=== PATIENT | female | born 1945 | race Caucasian/White ===

== ENCOUNTER 2017-02-25 10:17 | Inpatient (IN) ==
[2017-02-25 10:49] LABS: MANUAL DIFF NEEDED? NO
[2017-02-25 10:51] LABS: BASO% 0.3 % (0.0-0.8); EOS# 0.12 X1000 (0.0-0.7); EOS% 1.6 % (0.0-10.0); HEMATOCRIT 35.4 % (37.0-47.0); HEMOGLOBIN 11.9 g/dL (12.0-16.0); IMM GRAN# 0.02 X1000 (0.0-0.04); IMM GRAN% 0.3 % (0.0-0.5); LYMPH# 0.96 X1000 (1.2-3.4); LYMPH% 12.7 % (20.5-51.1); MCH 28.9 PG (27-31); MCHC 33.6 g/dL (33-37); MCV 85.9 FL (81-99); MONO# 0.72 X1000 (0.11-0.59); MONO% 9.5 % (1.7-9.3); MPV 10.4 FL (7.4-10.4); NEUT% 75.6 % (42.2-75.2); PLT 248 X1000 (130-400); RBC 4.12 XMIL (4.2-5.4)
[2017-02-25 11:29] LABS: ALBUMIN 3.8 g/dL (3.5-5.0); CALCIUM 9.4 mg/dL (8.8-10.2); POTASSIUM 3.2 mmol/L (3.5-5.1); TOTAL BILIRUBIN 1.1 mg/dL (0.20-1.00); TOTAL PROTEIN 7.1 g/dL (6.3-8.3)
--- NOTE | 2017-02-25 11:35 | Diag Imaging Result Document ---
PROCEDURE NAME: FLAT/UPRIGHT ABD/1 VIEW CHEST - 02/25/2017 FLAT AND UPRIGHT ABDOMEN: FINDINGS: There are multiple phleboliths in the pelvis. The bowel gas pattern is unremarkable. There is no evidence of organomegaly or mass. There may be a stone or stones in the lower pole of the left kidney. This was the case on the CT of 03/12/2012. IMPRESSION: Left nephrolithiasis. Otherwise, no evidence of acute disease. PA CHEST: FINDINGS: There is a granuloma in the right upper lobe. This has not changed since 07/20/2012. IMPRESSION: No acute disease.
[2017-02-25 11:47] LABS: BILIRUBIN URINE NEGATIVE (NEGATIVE); BLOOD URINE NEGATIVE (NEGATIVE); CLARITY CLEAR (CLEAR); COLOR YELLOW; GLUCOSE URINE NEGATIVE (NEGATIVE); LEUKOCYTES URINE 1+ (NEGATIVE); NITRITE URINE NEGATIVE (NEGATIVE); PROTEIN URINE NEGATIVE (NEGATIVE); URINE CULTURE PL NEEDED? YES; URINE EPITHELIAL CELLS <10 /HPF (<10); URINE SOURCE CLEAN CATCH; URINE WBC <10 /HPF (<10); UROBILINOGEN URINE NORMAL
[2017-02-25] MEDS ORDERED: NS 1,000 ML IV ONE (11:53)
[2017-02-25] MEDS ORDERED: NS 1,000 ML ONE (11:54)
[2017-02-25] MEDS ORDERED: ZOFRAN IV ONE (12:45)
[2017-02-25] MEDS ORDERED: MORPHINE IV ONE (12:45)
[2017-02-25] MEDS ORDERED: ZOFRAN ONE (12:49)
[2017-02-25] MEDS ORDERED: MORPHINE ONE (12:50)
--- NOTE | 2017-02-25 12:56 | Diag Imaging Result Document ---
PROCEDURE NAME: CT ABD/PELVIS W/ IV CONT ONLY - 02/25/2017 CT ABDOMEN AND PELVIS WITH INTRAVENOUS CONTRAST: A CT dose reduction protocol was used. COMPARISON: 03/02/2012. FINDINGS: The gallbladder is severely dilated with severe wall thickening and inflammation. This is compatible with acute cholecystitis. There are a couple of stable cysts in the liver. There are a couple of stable nonobstructing left renal stones. No bowel obstruction or inflammation. Significant diverticulosis of the sigmoid colon. Uterus is absent. Urinary bladder and rectum are normal. The lung bases are clear and the heart size is normal. Bony structures are intact. IMPRESSION: Acute cholecystitis. Findings were immediately called to the patient's ER practitioner. [facility]
[2017-02-25] MEDS ORDERED: ZOSYN 3.375 GM/NS 3.375 GM/50 ML IVPB IV ONE (13:22)
--- NOTE | 2017-02-25 13:30 | PROVIDER DOCUMENTATION ---
This chart was entered by Damien Ruiz Scribe, acting as scribe for Cheri Arellano CRNP. HPI-Abdominal Pain/GI Problem - General Chief Complaint: N/V/D Stated Complaint: N/V/D Time Seen by Provider: 02/25/17 10:31 Source: patient Allergies/Adverse Reactions: Patient Allergies Allergy/AdvReac Type Severity Reaction Status Date / Time No Known Allergies Allergy Unverified 02/25/17 10:33 Home Medications: Home Medication List Medication Instructions Recorded Confirmed Last Taken Type Aspirin [Aspir 81] 81 mg PO DAILY 07/20/12 07/20/12 07/19/12 07:00 History 81MG Losartan/Hydrochlorothiazide 0.5 each PO DAILY 07/20/12 07/20/12 07/20/12 07:00 History [Losartan-Hctz 100-25 mg Tab] 50MG/12.5MG - History of Present Illness-ABD Nature of Presenting Problems: patient is a 71 y/o F that presents to the ER with one week of intermitted n/v/ d with some abdominal soreness but not pain. patient reports symptoms began with n/v and developed some diarrhea 24 hours ago. denies fever/chills, dysuria , chest pain, or shortness of breath. No recent bad food or sick exposure Abdominal Pain Onset Location: reports: epigastric Pain Radiation: reports: no radiation Quality of Pain: reports: aching, cramping Onset/Duration: reports: gradual, 1 week ago Timing: reports: still present, intermittent Activities at Onset: reports: none Modifying Factors: improves with: nothing Associated Symptoms: reports: diarrhea, nausea, vomiting. denies: back/neck pain, chest pain, constipation, cough, fever/chills, genitourinary problems, muscle aches, sinus congestion/drainage, shortness of breath, pain with inspiration, swelling/mass in abdomen Similar Symptoms Previously?: No Recently seen or treated by another doctor?: No Review of Systems - Adult - REVIEW OF SYSTEMS - ADULT Constitutional: denies: chills, fever Eyes: denies: decreased vision, blurred vision, double vision Ears, Nose, Mouth & Throat: denies: ear pain, sinus problem, throat pain, throat swelling Cardiovascular: denies: chest pain, palpitations, syncope Respiratory: reports: no symptoms reported Gastrointestinal: reports: diarrhea, nausea, vomiting. denies: hematemesis, constipation, rectal bleeding Genitourinary: denies: dysuria, frequency, hematuria, urgency Musculoskeletal: reports: no symptoms reported Integumentary: reports: no symptoms reported Neurological: reports: no symptoms reported Psychiatric: reports: no symptoms reported Endocrine: reports: no symptoms reported Hematologic/Lymphatic: reports: no symptoms reported Allergic/Immunologic: reports: no symptoms reported All Other Systems: Reviewed and Negative Past History - Adult - PAST MEDICAL HISTORY-ADULT Review of Records: reports: Old Records Reviewed, Nursing Assessment Review, Medications Reviewed Cardiovascular: reports: HTN Neurological: reports: other (essetinal tremor) - PRIOR SURGERIES/PROCEDURES Surgical/Procedure History: reports: appendectomy, hysterectomy - IMMUNIZATION STATUS Childhood Immunizations: See Nurse Assessment Flu Vaccine: See Nurse Assessment - FAMILY HISTORY Family History: reviewed, not pertinent - SOCIAL HISTORY Smoking: non-smoker Living Situation: family Physical Exam-General - PHYSICAL EXAM-ADULT Initial Vital Signs Reviewed: Yes - CONSTITUTIONAL General Appearance: alert, no apparent distress - EYES Eyes: PERRL/EOMI, pink conjunctivae - HEAD, EARS, NOSE, MOUTH & THROAT HENMT: normocephalic/atraumatic, moist mucous membranes, normal ENT inspection - NECK Neck: non-tender, full range of motion, normal inspection - RESPIRATORY Respiratory: lungs clear, normal breath sounds, no respiratory distress, no accessory muscle use - CARDIOVASCULAR Cardiovascular: regular rate, rhythm, no edema, no murmur - GASTROINTESTINAL (ABDOMEN) Abdominal Exam: normal bowel sounds, soft, no organomegaly, no pulsatile mass, tenderness (mild epigatric more soreness) - MUSCULOSKELETAL Extremity: normal range of motion, no calf tenderness, normal capillary refill - SKIN Integumentary: normal color, warm/dry - NEUROLOGIC Neurologic: other (essetinal left sided tremo). negative: aphasia, EOM palsy, facial droop - PSYCHIATRIC Psych/Mental Status: normal mood/affect, normal thought content, normal thought process, oriented x 3 Progress - PLAN OF CARE/RESULTS Progress/Plan/Lab Results: Vital Signs - 8 hr 02/25/17 10:29 Temperature 98.0 F Pulse Rate 75 Respiratory Rate 20 Blood Pressure 122/68 O2 Sat by Pulse Oximetry 99 Result Diagrams: 02/25/17 10:45 02/25/17 10:45 - CT/MRI 1 CT Study: Abdomen, Pelvis CT Results: Acute cholecystitis ([place]) - CONSULTS/PCP/HOSPITALIST Notification #1 *Consult/PCP/Hospitalist*: Dr. Piper Time Discussed: 13:18 Reason/Comments: Consult Consult Disposition: other (Admit to medicine and he will see. Do US and start Zosyn.) #2 Consult: Dr. Pearce Time Discussed: 13:28 Reason/Comments: Admission Consult Disposition: Admit Departure - Departure Time of Disposition Decision: 13:22 DIAGNOSIS: Acute cholecystitis Disposition: ADMITTED INPATIENT 09 Certified Medical Emergency: Emergent Condition: Stable Referrals and Follow-Ups: Serjio Perdomo MD [Primary Care Provider] - - Critical Care Note This patient required my direct personal management.: No Attestation - Physician/ ABDIFATAH Attestation Patient care was provided by Advanced Practice Provider:: Yes Advanced Practice Provider:: Cheri Arellano Advanced Practice Provider documentation review:: The Mid-level provider documentation, treatment plan and medical decision making was reviewed by the physician who agrees with all treatment and medical decision making by the MLP. This chart was documented by the indicated scribe, (Damien Ruiz, [employer]) and accurately reflects the services I performed and decisions made by me, Cheri Arellano CRNP, as attested by the provider's signature.
--- NOTE | 2017-02-25 15:25 | Diag Imaging Result Document ---
PROCEDURE NAME: US ABDOMEN-COMPLETE - 02/25/2017 ULTRASOUND ABDOMEN COMPLETE: COMPARISON: CT from earlier. FINDINGS: There are numerous shadowing gallstones in the gallbladder. The gallbladder is distended with severe wall thickening. There are cysts in the liver and right kidney. Otherwise, both kidneys are normal. The pancreas and spleen are normal. The common bile duct measures 3 mm. Aorta, IVC, and main portal vein are patent. IMPRESSION: Acute cholecystitis.
[2017-02-25] MEDS: PROTONIX IV SCH (17:15)
[2017-02-25] MEDS: SODIUM CHLORIDE 0.9% INJ SCH (17:15)
[2017-02-25] MEDS: NS + KCL 20 MEQ 1,000 ML IV SCH (17:18)
--- NOTE | 2017-02-25 17:34 | HISTORY AND PHYSICAL ---
CHIEF COMPLAINT: Nausea, vomiting, abdominal pain. HISTORY OF PRESENT ILLNESS: This is a very pleasant, 71-year-old female with history of hypertension alone, who has had about a week history of epigastric pain and some intermittent diarrhea and then protracted nausea. She has had episodes where she feels like she gets better after a day or 2 and then it just comes back, usually associated with eating. She has no history of gallstones or biliary colic previously. Pain is sharp, focused in her epigastrium, associated with nausea, vomiting. Does radiate to her lower quadrants. Associated also with some diarrhea which started today which was a light yellowish color. She denies any fevers. No recent large fatty meals or anything of that nature. Workup in the ER consistent with cholecystitis, as well as gallstone pancreatitis and she was admitted as such. PAST MEDICAL HISTORY: 1. Hypertension. 2. Osteoarthritis. 3. Benign essential tremor. FAMILY HISTORY: Son has had recent gallbladder disease and she has 1 sister who had gallbladder disease. SOCIAL HISTORY: No tobacco or ethanol. ALLERGIES: No known drug allergies. MEDICATIONS: She takes Hyzaar, losartan, hydrochlorothiazide 100/25 half a tablet a day and 81 of aspirin. REVIEW OF SYSTEMS: Times 10 systems, otherwise reviewed and otherwise negative. PHYSICAL EXAMINATION: VITAL SIGNS: Blood pressure 151/58, heart rate is 67, respiratory rate 20, temperature of 98 degrees. GENERAL: A well-developed female, in no acute distress. HEAD: Normocephalic, atraumatic. EYES: Pupils equal, round, reactive to light. I did not appreciate any scleral icterus. NECK: Supple. CARDIOVASCULAR EXAM: Regular rate and rhythm. No murmurs, gallops, or rubs. PULMONARY: Exam bilateral breath sounds. Clear to auscultation. GI: Soft. Tender to palpation in her right upper quadrant and epigastrium. Some pain in her lower quadrants. No guarding. No rebound. Bowel sounds are positive. EXTREMITIES: No clubbing or cyanosis. LYMPHATICS: No peripheral edema. NEUROLOGICAL: Nonfocal. LABORATORY DATA: Normal white count. Hemoglobin and hematocrit 11 and 35. Platelets of 248. Potassium of 3.2. T-bili of 1.1. AST 204, ALT 85, alkaline phosphatase 390. Lipase 245. CT scan was read. Impression was cholecystitis. There was no mention of pancreatitis. ASSESSMENT: A 71-year-old female presenting with nausea, vomiting, diarrhea, abdominal pain, most consistent findings was a gallstone pancreatitis. 1. Gallstone pancreatitis, cholecystitis. We will continue IV fluids, pain control, IV antibiotics. She has no white count, but she is clinically symptomatic. Right upper quadrant ultrasound is being ordered to evaluate for choledocholithiasis, which is a possibility since she has elevated liver enzymes, alkaline phosphatase, mild elevation in her bilirubin. We will continue hydration and pursue surgical consultation because she will likely need laparoscopic cholecystectomy and intraoperative cholangiogram to evaluate for obstructed stones. Continue pain medication, nausea medication and follow clinically. 2. Hypertension. We will monitor. Currently, she appears to be stable. 3. Hypokalemia. We will supplement and follow. cc: MD Serjio Pearson MD
[2017-02-25] MEDS: ZOSYN 3.375 GM/NS 3.375 GM/50 ML IVPB IV SCH (18:23)
--- NOTE | 2017-02-26 00:18 | CONSULTATION ---
DATE OF CONSULTATION: 02/25/2017 HISTORY OF PRESENT ILLNESS: This is a 71-year-old female who presents with about a week of right upper quadrant pain. She states she has had colicky intermittent episodes over the last several months, but this week it has become persistent. Unable to tolerate p.o., as this makes her pain worse, and it got to the point that she came into the emergency room today. CT scan was obtained that showed a dilated, distended gallbladder with stranding. She does note some dark urine, but no jaundice. Has had low-grade fevers over the course of a week, as high as 101, and some nausea, but no vomiting. Bowel movements have otherwise been normal, with the exception they have been somewhat loose lately LFTs were abnormal, with elevation in her lipase to 245. Her bilirubin is 1.1. Transaminases 204 and 85, alkaline phosphatase 391. White count was 7, hematocrit was 35. Urinalysis had 1+ white blood cells, but otherwise was negative. PAST MEDICAL HISTORY: Hypertension. PAST SURGICAL HISTORY: She had a hysterectomy and appendectomy and ovarian cystectomy. SOCIAL HISTORY: No tobacco, alcohol, or drugs. [place]. She has got a lot of family. FAMILY HISTORY: Her dad had leukemia, but otherwise negative for cancer. She has had colonoscopies in the past that reportedly were normal. REVIEW OF SYSTEMS: 10 point negative other than HPI PHYSICAL EXAMINATION: Vital Signs: Temperature is 98 degrees, pulse 67, blood pressure 151/58, oxygen saturation 100% on room air. General: She is alert, in no acute distress. HEENT: No scleral icterus. Cervical: There are no masses, no lymphadenopathy. Cardiovascular: Normal rate, regular rhythm. Pulmonary: No increased work of breathing. Abdomen: Soft, nondistended. There is some right upper quadrant tenderness to palpation, but no peritonitis. Integument: Otherwise warm, dry, without jaundice. Extremities: Lower extremity exam is warm, well-perfused, without edema. Neurologic: She is alert. I do not see any gross motor deficits, other than she does have a tremor throughout. Musculoskeletal: Good muscle mass throughout. . DIAGNOSTIC DATA: CT of the abdomen and pelvis with IV contrast shows a dilated , thickened gallbladder with surrounding stranding. Ultrasound shows stones, but no ductal dilation at 3 mm, and there are gallstones. Pancreas without mass. ASSESSMENT AND PLAN: A 71-year-old female with gallstone pancreatitis and cholecystitis. I had a long discussion with the patient. She is clinically stable, and does not appear to be septic. Given pancreatitis, I have recommended n.p.o. and bowel rest following her labs and exams, and IV antibiotics for the cholecystitis. We will plan a cholecystectomy with cholangiogram as her pancreatitis resolves. We will monitor LFTs. If they worsen, she may need ERCP first, but will make this determination as she progresses. Otherwise, we discussed risks, benefits, alternatives to surgery. She does consent to laparoscopic cholecystectomy with intraoperative cholangiogram. I have made her n.p.o., and she is on Zosyn per Dr. Tirado. Will follow her along, but most likely will take through the weekend before she is in a place that is good for cholecystectomy, the earliest tomorrow, most likely Wednesday. We also discussed the possibility of requiring an ERCP. She understands. cc: Everardo Piper MD MTDD
[2017-02-26] MEDS: ZOSYN 3.375 GM/NS 3.375 GM/50 ML IVPB IV SCH ×4 (01:01→22:40)
[2017-02-26] MEDS: NS + KCL 20 MEQ 1,000 ML IV SCH ×3 (04:12→22:54)
[2017-02-26 05:55] LABS: HEMATOCRIT 34.8 % (37.0-47.0); HEMOGLOBIN 11.6 g/dL (12.0-16.0); MCH 29.5 PG (27-31); MCHC 33.3 g/dL (33-37); MCV 88.5 FL (81-99); MPV 10.3 FL (7.4-10.4); RBC 3.93 XMIL (4.2-5.4)
[2017-02-26] MEDS: ZOFRAN IV PRN ×2 (05:56→23:09)
[2017-02-26 06:14] LABS: ALBUMIN 3.5 g/dL (3.5-5.0); POTASSIUM 4.3 mmol/L (3.5-5.1); TOTAL BILIRUBIN 0.81 mg/dL (0.20-1.00); TOTAL PROTEIN 6.8 g/dL (6.3-8.3)
--- NOTE | 2017-02-26 14:49 | PROGRESS NOTE ---
DATE: 02/26/2017 SUBJECTIVE: Still has some pain that sounds consistent with resolving pancreatitis, and some nausea. Otherwise, no vomiting. Hemodynamically, she has been stable. No fevers overnight. OBJECTIVE: Vital Signs: Temperature is 98.3 degrees, pulse 56, blood pressure 143/60, and oxygen saturation 99% on room air. General: She is alert, in no acute distress. HEENT: There is no scleral icterus. Cardiovascular: Normal rate, regular rhythm. Pulmonary: No increased work of breathing. Abdomen: Soft. There is some mild epigastric tenderness, but no peritonitis. She is nondistended. Integument: Warm and dry, without jaundice. Extremities: No lower extremity edema. LABORATORIES: I reviewed her laboratories. White count remains normal at 7, hematocrit is 34. Creatinine is up slightly at 1.2, but electrolytes look better. Bilirubin is down to 0.81. Transaminases, AST and ALT are 109 and 124. Alkaline phosphatase is down to 126. Her lipase has normalized now at 41. Albumin is 3.5. ASSESSMENT AND PLAN: This is a 71-year-old female with gallstone pancreatitis and evidence of cholecystitis. Clinically, she is improving, but I suspect her pancreatitis has not quite resolved yet, as she has not been really on bowel rest now for 24 hours, but her liver function tests are gradually improving and her white count remains normal, with a relatively benign abdominal examination. Risks, benefits, and alternatives have been discussed with the patient, including the high risk of common bile duct injury in the setting of pancreatitis and the likelihood that she may require ERCP if stone is noted on cholangiogram. I have her tentatively posted for laparoscopic cholecystectomy with cholangiogram on Wednesday. If anything changes in her condition over the weekend, myself or Dr. Rene can make more arrangements sooner, but I think allowing the pancreatitis to resolve will provide her an optimal benefit, and she is on antibiotics and is clinically responding as far as her cholecystitis. Will continue to monitor her. I do not see signs of cholangitis at this time. If her pain resolves over the weekend, we could give her clear liquids, but will plan to make her n.p.o. Wednesday night for surgery on Wednesday. cc: Everardo Piper MD
--- NOTE | 2017-02-26 15:28 | PROGRESS NOTE ---
DATE: 02/26/2017 SUBJECTIVE: Ms. Quinones is a 71-year-old female who is in no acute distress. She had some nausea this morning. Plans per Dr. Piper is for cholecystectomy on Wednesday. She has no other complaints. OBJECTIVE: Vital Signs: Temperature is 98.3 degrees, heart rate 56, respiratory rate 18, blood pressure 143/60, O2 saturation 99% on room. General: Ms. Quinones is a 71-year-old female. She is in no acute distress and is able to answer all questions appropriately. Cardiovascular: S1, S2. Regular rate and rhythm. No rubs, gallops, murmurs. Pulmonary: Clear to auscultation. Bilateral breath sounds. No accessory muscle use or work of breathing noted. GI: Soft, nontender, nondistended. Positive bowel sounds x4. Extremities: No edema. +2 dorsalis and radial pulses. LABORATORY DATA: White blood cells 7000, hemoglobin 11, hematocrit 34, platelet count 244,000. Sodium 145, potassium 4.3, BUN 11, creatinine is 1.2, glucose 89. Bilirubin 0.81. AST 109, ALT 124, alkaline phos 326. Amylase 67, lipase 41. IMAGING: No new imaging. ASSESSMENT AND PLAN: 1. Cholecystitis. IV fluid hydration. Pain control. On IV antiemetics along with IV antibiotics. She is planned for a cholecystectomy on Wednesday by Dr. Piper. 2. Gallstone pancreatitis low-grade. Amylase and lipase are back to normal. Continue IV fluid hydration. Antiemetics per Dr. Piper. She can have ice chips today, clear liquids tomorrow, full liquids Wednesday and NPO on Wednesday night. 3. Hypertension. Stable. 4. Hypokalemia. Resolved. 5. Transaminitis secondary to gallstone. 6. Anemia. Dictated by SHARRON Boland for Rico Jean-Baptiste MD cc: SHARRON Boland MD
[2017-02-26] MEDS: SODIUM CHLORIDE 0.9% INJ SCH (17:32)
[2017-02-26] MEDS: PROTONIX IV SCH (17:32)
[2017-02-27] MEDS: NS + KCL 20 MEQ 1,000 ML IV SCH ×2 (02:20→11:39)
[2017-02-27] MEDS: ZOSYN 3.375 GM/NS 3.375 GM/50 ML IVPB IV SCH ×5 (04:54→23:06)
[2017-02-27 06:08] LABS: MANUAL DIFF NEEDED? NO
[2017-02-27 06:11] LABS: EOS# 0.23 X1000 (0.0-0.7); EOS% 2.8 % (0.0-10.0); HEMATOCRIT 33.6 % (37.0-47.0); HEMOGLOBIN 10.9 g/dL (12.0-16.0); LYMPH# 1.42 X1000 (1.2-3.4); LYMPH% 17.3 % (20.5-51.1); MCH 29.1 PG (27-31); MCHC 32.4 g/dL (33-37); MCV 89.6 FL (81-99); MONO# 0.84 X1000 (0.11-0.59); MONO% 10.2 % (1.7-9.3); MPV 10.4 FL (7.4-10.4); NEUT% 68.7 % (42.2-75.2); PLT 253 X1000 (130-400); RBC 3.75 XMIL (4.2-5.4)
[2017-02-27 06:51] LABS: ALBUMIN 3.3 g/dL (3.5-5.0); CALCIUM 8.6 mg/dL (8.8-10.2); POTASSIUM 4.4 mmol/L (3.5-5.1); TOTAL BILIRUBIN 0.65 mg/dL (0.20-1.00); TOTAL PROTEIN 6.6 g/dL (6.3-8.3)
[2017-02-27] MEDS: ZOFRAN IV PRN (09:40)
[2017-02-27] MEDS ORDERED: D50W SYRINGE IV PRN (11:02)
--- NOTE | 2017-02-27 12:17 | PROGRESS NOTE ---
DATE: 02/27/2017 SUBJECTIVE: Ms. Quinones is a 71-year-old female. She is in no acute distress. She states that she does have a waves of nausea. Today she has been able to have some small amounts of clear fluids p.o. and has tolerated them well. Liver enzymes are lower today. She has no new complaints. OBJECTIVE: Vital Signs: Temperature is 98.8 degrees, heart rate 64, respiratory rate 18, blood pressure 141/54, O2 saturation 96% on room air. Cardiovascular: S1, S2. Regular rate and rhythm. No rubs, gallops, murmurs. Pulmonary: Clear to auscultation. Bilateral breath sounds. No accessory muscle use or work of breathing noted. Gastrointestinal: Abdomen soft, nontender, nondistended. Positive bowel sounds x4. Skin: Warm, dry, intact. LABORATORY DATA: White blood cells 8000. Hemoglobin 10, hematocrit 33, platelet count 253,000. Sodium 146, potassium 4.4, BUN 17, creatinine is 1.1, glucose was 50. Bilirubin 0.65, AST 42, ALT 74, alkaline phosphatase 243, albumin 3.3. IMAGING: None. ASSESSMENT AND PLAN: 1. Cholecystitis. Continue IV and fluid hydration. Pain control. Continue antiemetics and antibiotics. Plan for cholecystectomy on Wednesday by Dr. Piper. 2. Gallstone pancreatitis. Appears to be resolved with normal amylase and lipase. She will have clear liquids today, full liquids tomorrow and then p.o. twice a day. 3. Hypernatremia. Mild. We will change IV fluids to half saline. 4. Hypertension. Stable. 5. Hypokalemia. Resolved. 6. Transaminitis. Improving. 7. Anemia. Stable. Dictated by SHARRON Boland for Rico Jean-Baptiste MD cc: SHARRON Boland MD
[2017-02-27] MEDS: 1/2 NS 1,000 ML IV SCH ×2 (12:20→23:06)
[2017-02-27] MEDS: PROTONIX IV SCH (16:18)
[2017-02-27] MEDS: SODIUM CHLORIDE 0.9% INJ SCH (16:18)
--- NOTE | 2017-02-27 17:50 | PROGRESS NOTE ---
DATE: 02/27/2017 SUBJECTIVE: The patient kind of hurts all over but denies any significant abdominal pain. No nausea or vomiting. She is tolerating her diet. OBJECTIVE: She is afebrile. Vital signs are stable.General: She is alert and oriented x3. No acute distress. GI: Soft. Minimal tenderness more so on the right side. No rebound or guarding. LABORATORY: White cell count 8, hemoglobin 10.9. AST 42, ALT 74, alkaline phosphatase 243. Total bilirubin 0.6. ASSESSMENT AND PLAN: A 71-year-old female with gallstone pancreatitis. The pancreatitis is significantly improving. She should be good to go for laparoscopic cholecystectomy on Wednesday. cc: Gil Rene MD
[2017-02-28] MEDS: 1/2 NS 1,000 ML IV SCH ×4 (02:00→21:37)
[2017-02-28] MEDS: ZOSYN 3.375 GM/NS 3.375 GM/50 ML IVPB IV SCH ×4 (05:06→21:37)
[2017-02-28 05:53] LABS: MANUAL DIFF NEEDED? NO
[2017-02-28 05:59] LABS: BASO% 0.5 % (0.0-0.8); EOS# 0.32 X1000 (0.0-0.7); EOS% 4.3 % (0.0-10.0); HEMATOCRIT 32.9 % (37.0-47.0); HEMOGLOBIN 10.9 g/dL (12.0-16.0); IMM GRAN# 0.02 X1000 (0.0-0.04); IMM GRAN% 0.3 % (0.0-0.5); LYMPH# 1.73 X1000 (1.2-3.4); LYMPH% 23.3 % (20.5-51.1); MCH 29.2 PG (27-31); MCHC 33.1 g/dL (33-37); MCV 88.2 FL (81-99); MONO% 9.4 % (1.7-9.3); MPV 10.6 FL (7.4-10.4); NEUT% 62.2 % (42.2-75.2); PLT 289 X1000 (130-400); RBC 3.73 XMIL (4.2-5.4)
[2017-02-28 06:28] LABS: ALBUMIN 3.4 g/dL (3.5-5.0); CALCIUM 8.7 mg/dL (8.8-10.2); POTASSIUM 3.7 mmol/L (3.5-5.1); TOTAL BILIRUBIN 0.51 mg/dL (0.20-1.00); TOTAL PROTEIN 6.3 g/dL (6.3-8.3)
--- NOTE | 2017-02-28 10:16 | PROGRESS NOTE ---
DATE: 02/28/2017 SUBJECTIVE: The patient complains of some diarrhea and abdominal discomfort, no worsening overall. OBJECTIVE: Vital Signs: She is afebrile. Vital signs are stable. General: Alert and oriented x4. No acute distress. GI: Soft. Minimal tenderness in her upper abdomen. Laboratory: White blood cell count 7.4, hemoglobin 10.9. Her AST is 26, ALT 60, alkaline phosphatase 207, total bilirubin 0.5. ASSESSMENT AND PLAN: A 71-year-old female with gallstone pancreatitis. She is scheduled for a laparoscopic cholecystectomy tomorrow. cc: Gil Rene MD
[2017-02-28] MEDS ORDERED: IMODIUM PO ONE (11:12)
[2017-02-28] MEDS ORDERED: IMODIUM PO PRN (11:13)
--- NOTE | 2017-02-28 13:47 | PROGRESS NOTE ---
DATE: 02/28/2017 SUBJECTIVE: Ms. Quinones is a 71-year-old female. She is in no acute distress but states that she is having lots of diarrhea that is clear and watery. Some mild nausea when she is moving around but otherwise no other complaints. EXAM: Vital Signs: Temperature is 98.2 degrees, heart rate 51, respiratory rate 14, blood pressure 139/51, O2 saturation 100% on room air. General: Ms. Quinones is a 71-year-old female, she is in no acute distress, able to answer questions appropriately. Cardiovascular: S1, S2. Bradycardic rate and rhythm. No rubs, gallops, murmurs. Pulmonary: Clear to auscultate. Bilateral breath sounds. No accessory muscle use or work of breathing noted. GI: Soft, nontender, nondistended. Positive bowel sounds x4. Extremities: No edema noted. +2 dorsalis pedal and radial pulses. LABORATORY DATA: White blood cells 7000, hemoglobin 10, hematocrit 32, platelet count 289,000. Sodium 142, potassium 3.7, BUN 7, creatinine is 1.0, glucose 84, calcium 8.7, bilirubin 0.51, AST 26, ALT 60, alkaline phosphatase 207, albumin 3.4. ASSESSMENT AND PLAN: 1. Cholecystitis. Will receive a cholecystectomy on Wednesday by Dr. Piper. Continue with pain control, IV fluid hydration, antiemetics. 2. Gallstone pancreatitis resolving. Continue with IV fluid hydration. She will have full liquids today, NPO after midnight for surgery. 3. Diarrhea. She has been on antibiotics for the cholecystitis. Will do a stool for culture, dose of Imodium. 4. Hypernatremia is resolved after intravenous fluids were changed to 0.45% saline. 5. Hypertension stable. 6. Hypokalemia resolved. 7. Transaminitis continues to improve. 8. Anemia stable. Dictated by SHARRON Boland for Rico Jean-Baptiste MD cc: SHARRON Boland MD
[2017-02-28] MEDS: SODIUM CHLORIDE 0.9% INJ SCH (16:52)
[2017-02-28] MEDS: PROTONIX IV SCH (16:52)
[2017-03-01] MEDS: ZOSYN 3.375 GM/NS 3.375 GM/50 ML IVPB IV SCH ×4 (03:17→22:07)
[2017-03-01 05:37] LABS: MANUAL DIFF NEEDED? NO
[2017-03-01 05:41] LABS: BASO% 0.7 % (0.0-0.8); EOS% 4.4 % (0.0-10.0); HEMATOCRIT 32.9 % (37.0-47.0); IMM GRAN# 0.02 X1000 (0.0-0.04); IMM GRAN% 0.3 % (0.0-0.5); LYMPH# 1.69 X1000 (1.2-3.4); LYMPH% 24.8 % (20.5-51.1); MCH 29.3 PG (27-31); MCHC 33.4 g/dL (33-37); MCV 87.5 FL (81-99); MONO# 0.75 X1000 (0.11-0.59); MPV 10.4 FL (7.4-10.4); NEUT% 58.8 % (42.2-75.2); PLT 258 X1000 (130-400); RBC 3.76 XMIL (4.2-5.4)
[2017-03-01 06:00] LABS: AGAP 12; ALBUMIN 3.4 g/dL (3.5-5.0); ALKALINE PHOSPHATASE 174 U/L (32-104); BUN 3 mg/dL (8-22); CALCIUM 9.2 mg/dL (8.8-10.2); CHLORIDE 109 mmol/L (98-107); COSMO 287; GOT 23 U/L (10-30); GPT 46 U/L (10-36); POTASSIUM 3.3 mmol/L (3.5-5.1); SODIUM 146 mmol/L (136-145); TCO2 25 mmol/L (25-35); TOTAL BILIRUBIN 0.46 mg/dL (0.20-1.00); TOTAL PROTEIN 6.1 g/dL (6.3-8.3)
[2017-03-01] MEDS ORDERED: MARCAINE 0.25% PF/EPI 1:200,000 ONE (06:16)
[2017-03-01] MEDS ORDERED: SODIUM CHLORIDE 0.9% ONE (06:16)
[2017-03-01] MEDS ORDERED: LR 1,000 ML ONE (06:16)
[2017-03-01] MEDS ORDERED: XYLOCAINE-MPF 1% ONE (06:16)
--- NOTE | 2017-03-01 07:32 | PROGRESS NOTE ---
DATE: 03/01/2017 SUBJECTIVE: The pain is effectively resolved. She is still having some loose stools. She tolerated some liquids over the weekend without worsening of her pain. OBJECTIVE: Vital Signs: No fevers. No tachycardia. Blood pressure has been normal. General: She is alert and oriented. There is no scleral icterus. Cardiovascular: Normal rate, regular rhythm. Abdomen: Soft, nontender, nondistended. Integumentary: Warm and dry without jaundice. LABORATORY DATA: I reviewed her labs. White count remains normal. Hematocrit has been stable. Clostridium difficile cultures were negative. LFTs are downtrending. Alkaline phosphatase is still mildly elevated, but bilirubin is normal. Lipase was normal and that was a couple of days ago. Creatinine is normal. ASSESSMENT AND PLAN: This is a 71-year-old female with gallstone pancreatitis and cholecystitis. Her pancreatitis seems to have resolved now at least for 24 hours. She is doing overall well, and we plan for cholecystectomy today to prevent episodes in the future and to treat her likely chronic cholecystitis picture. We discussed risks, benefits, and alternatives, and this including bleeding, infection, bile leak, common bile duct injury, and the likelihood of having to leave the drain in, and the possibility of requiring ERCP. She understands all this. We will proceed to the operating room for laparoscopic cholecystectomy with intraoperative cholangiogram today, and then further disposition pending the findings at the time of surgery. cc: Everardo Piper MD
[2017-03-01] MEDS ORDERED: GLUCAGON ONE (07:57)
[2017-03-01] MEDS ORDERED: FENTANYL ONE (08:50)
[2017-03-01] MEDS ORDERED: DIPRIVAN 1% ONE (08:50)
[2017-03-01] MEDS: MORPHINE ONE ×6 (09:06→09:48)
[2017-03-01] MEDS ORDERED: PHENERGAN ONE (09:10)
--- NOTE | 2017-03-01 09:19 | Diag Imaging Result Document ---
PROCEDURE NAME: OPERATIVE CHOLANGIOGRAM - 03/01/2017 INTRAOPERATIVE CHOLANGIOGRAM: FINDINGS: There are 3 images submitted which show contrast in the cystic duct, common bile/hepatic duct, and central intrahepatic radicles. There is a small amount of contrast which appears to be located just distal to the ampulla of Vater and may be located in the duodenum. The possibility that this represents a tortuous distal most common bile duct with a couple of tiny retained stones in the distal most duct cannot be entirely excluded, however. The remainder of the opacified system shows no evidence of retained stone. There is some extravasated contrast noted at the right upper quadrant. IMPRESSION: No definite retained stones identified. A couple of tiny retained stones in the distal-most common bile duct cannot be entirely excluded. [facility]
[2017-03-01] MEDS ORDERED: NEOSTIGMINE ONE (09:29)
[2017-03-01] MEDS ORDERED: ANESTHESIA PB SET 88 IN 5742 ONE (09:29)
[2017-03-01] MEDS ORDERED: XYLOCAINE-MPF 2% ONE (09:29)
[2017-03-01] MEDS ORDERED: QUELICIN (DOSE) ONE (09:29)
[2017-03-01] MEDS ORDERED: NORCURON ONE (09:29)
[2017-03-01] MEDS ORDERED: EXTENSION SET 32 IN 4522 ONE (09:29)
[2017-03-01] MEDS ORDERED: ZOFRAN ONE (09:29)
[2017-03-01] MEDS ORDERED: STERILE WATER INJ. ONE (09:29)
[2017-03-01] MEDS ORDERED: ROBINUL ONE (09:29)
[2017-03-01] MEDS ORDERED: DECADRON ONE (09:30)
[2017-03-01] MEDS ORDERED: LR 4,000 ML ONE (09:31)
[2017-03-01] MEDS ORDERED: POTASSIUM CHLORIDE 60 MEQ in NS 500 ML IV ONE (10:00)
--- NOTE | 2017-03-01 10:37 | OPERATIVE NOTE ---
PROCEDURE DATE: 03/01/2017 PREOPERATIVE DIAGNOSIS: Gallstone pancreatitis with cholecystitis. POSTOPERATIVE DIAGNOSES: 1. Gallstone pancreatitis with cholecystitis. 2. Choledocholithiasis. OPERATIVE PROCEDURE: Laparoscopic cholecystectomy with intraoperative cholangiogram. SURGEON: Everardo Piper MD ESTIMATED BLOOD LOSS: 25 mL. SPECIMENS: Gallbladder. DRAIN: Garth drain left in the gallbladder fossa. INDICATIONS: This is a 71-year-old female who presented with right upper quadrant abdominal pain. She had normal LFTs, elevated lipase, CT, and ultrasound consistent with cholecystitis. She was kept on antibiotics and bowel rest over the weekend. Her pancreatitis resolved and her numbers slowly improved as far as her bilirubin, but her alkaline phosphatase remained elevated. Cholecystectomy was indicated and cholangiogram to rule out bile duct obstruction. OPERATIVE FINDINGS: 1. There was a chronically inflamed, distended gallbladder that was full of innumerable stones. 2. Interpretation of intraoperative cholangiogram: There was rapid flow of contrast through a moderate length cystic duct into a moderately dilated common bile duct. There was some slight trickle of contrast into the duodenum but this was very minimal. There appeared to be a distal common bile duct partial obstruction and a tortuous distal duct. The pancreatic duct was not visualized. The common hepatic and bilateral 2nd and 3rd degree biliary radicles were visualized. OPERATIVE NOTE: Risks, benefits, and alternatives were discussed with the patient. She consented to the procedure. She was seen in the preoperative area and surgery to be performed was confirmed. She was taken to the operating room and placed in supine position. General anesthesia was induced without complication. All bony prominences were padded. Preincisional antibiotics were administered. The abdomen was prepped with chlorhexidine and draped in the usual fashion. After a time-out, a periumbilical block was made. A curvilinear infraumbilical incision was made and carried down to the level of the fascia. We elevated the fascia with a Patel clamp. We made an incision in the midline and entered the abdomen in a controlled, open fashion. A 12 mm Ed trocar was placed and insufflated to 15 mmHg. We inspected the abdomen. There was no evidence of underlying injury. We then placed 3 trocars, 1 at the epigastrium, 1 in the midclavicular line off the costal margin, and 1 more laterally after infiltration of the peritoneum with a local anesthetic. We took down the omental adhesions to the gallbladder and retracted cephalad. We started laterally, progressing medially. We were able to identify the infundibulocystic junction. There was a very inflamed and adherent and friable lymph node overlying the triangle. We were able to establish the critical view of safety. We placed a clip on the gallbladder side and made a ductotomy. We milked some stones out of the cystic duct. There was a very large cystic duct but with a nearly obliterated lumen. We were able to perform cholangiogram. We triply clipped the duct after performing cholangiogram with the above findings. We did administer glucagon in attempt to get the distal obstruction relieved and this was unable to do so. We triply clipped and divided the cystic duct. We then dissected out the cystic artery, which was obscured prior to this, and doubly clipped and divided this. We removed the gallbladder from the gallbladder fossa. There was an opening made. This was densely adherent to the liver and there was an opening made posteriorly with some spillage of stones. We did crush these and removed the majority of these that were removable. We suctioned and copiously irrigated the abdomen with 3 L of fluid. The gallbladder was placed in the EndoCatch bag. We placed a Garth drain in the gallbladder fossa and secured it with 2-0 nylon. We inspected the cystic duct stump and it was not leaking. Hemostasis was noted. We removed trocars under direct visualization. We desufflated the abdomen and brought the gallbladder out through the umbilical incision. We closed the fascia with interrupted 0 Vicryl sutures. The skin was closed with 4-0 Monocryl. Dermabond was applied. She tolerated the procedure well and was transferred to the PACU. Counts were correct x2. I talked to the family. We will consult GI medicine for ERCP. cc: Everardo Piper MD [facility]
--- NOTE | 2017-03-01 10:58 | PROGRESS NOTE ---
DATE: 03/01/2017 SUBJECTIVE: The patient reports feeling fine. Still having diarrhea, although less in comparing with yesterday. OBJECTIVE: Vital Signs: Temperature 98.6, heart rate 66, respiratory rate 20, blood pressure 133/55. O2 saturation 98% on room air. General: This is a 71-year-old female lying in bed, in no acute distress. HEENT: Head is normocephalic, atraumatic. Anicteric sclerae and pale conjunctivae. Mucous membranes moist. Neck: Supple. No JVD noted. No carotid bruits. No lymphadenopathy. No thyromegaly. Cardiovascular: S1, S2 heard. No murmurs, gallops, or rubs. Regular rate and rhythm. Respiratory: Clear bilaterally to auscultation. No work of breathing or using accessory muscles. Abdomen: Soft, a little bit distended, but nontender to palpation. Bowel sounds present. No organomegaly. Extremities: No clubbing, cyanosis, or edema. Peripheral pulses present in both legs. Neurological: Patient alert and oriented x3. Able to move 4 extremities. LABORATORY DATA: White cell count 6.82, hemoglobin 11.0 hematocrit 32.9, platelets 258. Sodium 146, potassium 3.3, chloride 109, bicarbonate 25, BUN 3 creatinine 0.9. ASSESSMENT AND PLAN: 1. Acute cholecystitis. Today, the patient is going to have a laparoscopic cholecystectomy as per Dr. Carlos Piper. We appreciate the help. 2. Gallstone pancreatitis. That condition was resolved with definitely less abdominal pain. 3. Diarrhea. I think that was secondary to antibiotics. We have checked Clostridium difficile on the stools and that returned negative. 4. Hypertension, stable. 5. Hypokalemia, resolved. 6. Transaminitis, continues to improve. 7. Physical deconditioning. We are going to place a consult for physical therapy to see if this patient is able to go home versus rehab facility. cc: Rico Jean-Baptiste MD
[2017-03-01] MEDS: 1/2 NS 1,000 ML IV SCH ×2 (11:19→17:13)
--- NOTE | 2017-03-01 16:17 | CONSULTATION ---
DATE OF CONSULTATION: 03/01/2017 ATTENDING PHYSICIAN: Dr. Carlos Piper REASON FOR CONSULTATION: Common bowel obstruction requiring ERCP. HISTORY OF PRESENT ILLNESS: Ms. Quinones is a 71-year-old female who was admitted on 02/25/2017 with gallstone pancreatitis and acute cholecystitis that was treated conservatively. Today she went for laparoscopic cholecystectomy by Dr. Carlos Piper. Intraoperative cholangiogram showed minimal drainage into the common bile duct and the possibility of choledocholithiasis. Gastroenterology was consulted for the possibility of ERCP. The patient has just come back from the OR so I spoke to the patient and family at bedside. Patient is complaining of abdominal pain postoperatively, which is being managed with the primary team. PAST MEDICAL HISTORY: 1. Hypertension. 2. Osteoarthritis. 3. Gallstones and gallstone pancreatitis. 4. Benign essential tremor. PAST SURGICAL HISTORY: Cholecystectomy and intraoperative cholangiogram today on 03/01/2017. FAMILY HISTORY: Gallbladder disease. SOCIAL HISTORY: Very supportive family at the bedside. I spoke to the daughter. No history of alcohol, tobacco or illicit drugs. ALLERGIES: No known drug allergies. HOME MEDICATIONS: Hyzaar, losartan, hydrochlorothiazide and 81 mg aspirin. REVIEW OF SYSTEMS: The patient is just returning from the OR recovering from anesthesia and complaining of abdominal pain. The patient denies any vomiting blood and passing blood in the stools. MEDICATIONS IN THE HOSPITAL: Include IV fluids 100 mL/hour, Imodium, morphine, Zofran, Protonix, Zosyn and she is currently NPO. OBJECTIVE: Vital Signs: Temperature of 98.4 degrees, pulse rate 66, respiratory rate 18, blood pressure 150/65, saturating 94% on 2 L. General Appearance: Body weight of 130 pounds. BMI 22.3 kg. General Appearance: Moderately nourished, lying in bed, in distress with abdominal pain postoperative. HEENT: Pale conjunctiva. No icterus. Neck: Supple. Chest: Decreased breath sounds. Cardiovascular: Tachycardia. Abdomen: Discomfort probably from recent surgery. Drain noted in the right upper quadrant and surgical dressing noted in the right upper quadrant. Bowel sounds are hypoactive. Extremities: No cyanosis, clubbing. Neurologic: She is awake and answers simple questions but in pain from recent surgery. LABORATORY DATA: Hemoglobin and hematocrit 11 and 32.9, white count 6.8, platelet count of 258,000. MCV of 87.5, sodium 140, potassium 3.3, chloride 109, bicarbonate 25, anion gap 12, BUN of 3 creatinine 0.9, glucose of 89, calcium 9.2, total bilirubin is 0.46, AST 23, ALT 46, alkaline phosphatase 174, total protein 6.1, albumin of 3.4, lipase of 245 on admission gone down to 41, amylase of 109 on admission and went to 67, liver enzymes were up on admission trending down after surgery. Operative cholangiogram done today showed no definite retained stones. A couple of tiny retained stones in the distal most common bile duct cannot be entirely excluded. Very small contrast noted in the duodenum. IMPRESSION/PLAN: 1. Gallstone pancreatitis now resolved. 2. Acute cholecystitis and gallstone status post laparoscopic cholecystectomy today. 3. Questionable common bile duct stricture versus choledocholithiasis per the intraoperative cholangiogram. RECOMMENDATIONS: We will keep the patient NPO past midnight. We will schedule patient for ERCP tomorrow with Dr. Fields. The risks, benefits, indications and alternatives of the procedure were discussed with the patient and family at bedside. We will keep the patient on PPIs for GI prophylaxis. The patient will continue on IV antibiotics IV fluids, IV antiemetics, IV pain controlled by the primary team. The above plan was discussed with the patient and family. All questions were answered. cc: MD Everardo Wren MD Cesar Garcia-Rodriguez, MD Kirk L. Jackson, MD
[2017-03-01] MEDS: SODIUM CHLORIDE 0.9% INJ SCH (17:03)
[2017-03-01] MEDS: PROTONIX IV SCH (17:04)
[2017-03-01] MEDS: MORPHINE IV PRN ×2 (17:13→20:32)
[2017-03-02] MEDS: ZOSYN 3.375 GM/NS 3.375 GM/50 ML IVPB IV SCH ×4 (05:09→22:22)
[2017-03-02 05:32] LABS: MANUAL DIFF NEEDED? NO
[2017-03-02 05:37] LABS: BASO% 0.2 % (0.0-0.8); EOS# 0.02 X1000 (0.0-0.7); EOS% 0.2 % (0.0-10.0); HEMATOCRIT 33.6 % (37.0-47.0); IMM GRAN# 0.03 X1000 (0.0-0.04); IMM GRAN% 0.3 % (0.0-0.5); LYMPH% 15.1 % (20.5-51.1); MCH 29.2 PG (27-31); MCHC 32.7 g/dL (33-37); MCV 89.1 FL (81-99); MONO# 0.82 X1000 (0.11-0.59); MONO% 8.9 % (1.7-9.3); MPV 10.3 FL (7.4-10.4); NEUT% 75.3 % (42.2-75.2); PLT 247 X1000 (130-400); RBC 3.77 XMIL (4.2-5.4)
[2017-03-02 05:56] LABS: AGAP 12; ALBUMIN 3.2 g/dL (3.5-5.0); ALKALINE PHOSPHATASE 197 U/L (32-104); BUN 4 mg/dL (8-22); CALCIUM 8.6 mg/dL (8.8-10.2); CHLORIDE 108 mmol/L (98-107); COSMO 287; GOT 92 U/L (10-30); GPT 114 U/L (10-36); POTASSIUM 3.9 mmol/L (3.5-5.1); SODIUM 146 mmol/L (136-145); TCO2 26 mmol/L (25-35); TOTAL BILIRUBIN 0.45 mg/dL (0.20-1.00); TOTAL PROTEIN 6.1 g/dL (6.3-8.3)
[2017-03-02] MEDS: 1/2 NS 1,000 ML IV SCH ×3 (05:59→22:20)
--- NOTE | 2017-03-02 10:04 | PROGRESS NOTE ---
DATE: 03/02/2017 SUBJECTIVE: A little sore at her incision, but otherwise doing okay. No nausea. She is tolerating some liquids last time, but she is n.p.o. for ERCP today. OBJECTIVE: Vital Signs: Temperature is 98.6 degrees, pulse 64, blood pressure 166/84, oxygen saturation 96% on room air. General: She is alert and oriented. Head and neck: There is no scleral icterus or jaundice. Abdomen: Soft, appropriately tender. Skin: Incision is clean, dry, intact. ELONIA serosanguineous. LABS: Reviewed. White count is 9, hematocrit 33. Her bilirubin remains normal at 0.45. AST and ALT are slightly up at 92 and 114, and alkaline phosphatase is up at 197. ASSESSMENT/PLAN: [age] old female with gallstone pancreatitis. Laparoscopic cholecystectomy done yesterday. Cholangiogram showed minimal flow in the duodenum with a tortuous and likely distal common bile duct obstruction related to an intraluminal stone. Consult to gastroenterology and medicine with plan for endoscopic retrograde cholangiopancreatography today with Dr. Fields. We will follow these results and plan for maybe home later today versus tomorrow. Otherwise, we will keep her drain in until after endoscopic retrograde cholangiopancreatography. cc: Everardo Piper MD
[2017-03-02] MEDS: PERIDEX MT SCH ×2 (10:47→22:22)
--- NOTE | 2017-03-02 11:14 | PROGRESS NOTE ---
DATE: 03/02/2017 SUBJECTIVE: This patient states that she is feeling better, but she is still having abdominal discomfort. Laparoscopic cholecystectomy was performed yesterday, but this patient has probably an obstruction at the level of the distal common bile duct. Gastroenterology Department was consulted and probably today this patient will have an ERCP. OBJECTIVE: Vital Signs: Temperature 98.6 degrees, pulse 64, respiratory rate 18, blood pressure 166/88, oxygen saturation 96 on room air. HEENT: Head normocephalic. No trauma. PERRLA. Neck: Supple. No JVD. No masses. Central trachea. Chest: Clear to auscultation. No wheezing. No rales. Cardiovascular: RRR. No murmurs. Abdomen: Soft. Tender to palpation at the level of the right upper and right flank area. There is a drain that is coming out from the right abdominal area with serosanguineous discharge. Extremities: No edema. No clubbing. No cyanosis. Neurological examination: The patient is alert and oriented x3. No focal neurological deficits. LABORATORY: WBC 9.2, hemoglobin 11, hematocrit 33.6, platelets 247. Sodium 146, potassium 3.9, chloride 108, bicarbonate 26, BUN 4, creatinine 0.9, glucose 96, calcium 8.6. AST 92, ALT 114, alkaline phosphatase 197. ASSESSMENT AND PLAN: 1. Acute cholecystitis status post laparoscopic cholecystectomy, probably there is an obstruction at the level of the distal common bile duct. This patient will have hopefully an endoscopic retrograde cholangiopancreatography done today. 2. Diarrhea. Clostridium difficile was ruled out. This patient is not complaining of too much diarrhea today. Will monitor. 3. Hypertension. The blood pressure is a little bit high. Will monitor this today, probably will adjust her medications. 4. Mild hypernatremia. I will monitor. 5. Transaminitis likely related to the bowel obstruction. This patient will have an endoscopic retrograde cholangiopancreatography done today. We will continue to monitor. 6. Physical deconditioning. Physical therapy is on board. This patient lives by herself and she has no help at home. Probably this patient will benefit from the rehabilitation center. This patient is also weak. cc: Ameya Sanchez MD
[2017-03-02] MEDS ORDERED: GLUCAGON ONE (13:26)
[2017-03-02] MEDS ORDERED: DIPRIVAN 1% ONE (14:34)
[2017-03-02] MEDS ORDERED: ANESTHESIA PB SET 88 IN 5742 ONE (14:43)
[2017-03-02] MEDS ORDERED: EXTENSION SET 32 IN 4522 ONE (14:43)
[2017-03-02] MEDS ORDERED: LR 1,000 ML ONE (14:43)
[2017-03-02] MEDS: MORPHINE IV PRN (14:54)
[2017-03-02] MEDS: ZOFRAN IV PRN (15:03)
[2017-03-02] MEDS ORDERED: SODIUM CHLORIDE 0.9% INJ PRN (15:38)
[2017-03-02] MEDS ORDERED: PHENERGAN IV PRN (15:38)
--- NOTE | 2017-03-02 15:47 | Diag Imaging Result Document ---
PROCEDURE NAME: ERCP-BILIARY AND PANCREATIC - 03/02/2017 ERCP: FINDINGS: First film shows contrast in the common bile duct. There is a wire within the common bile duct. The last film shows placement of a biliary stent. IMPRESSION: Biliary stent placed with possible stone removal.
[2017-03-02] MEDS: SODIUM CHLORIDE 0.9% INJ SCH (16:09)
[2017-03-02] MEDS: PROTONIX IV SCH (16:09)
[2017-03-02] MEDS: DEMEROL IV PRN (22:41)
[2017-03-03] MEDS: ZOSYN 3.375 GM/NS 3.375 GM/50 ML IVPB IV SCH ×4 (03:28→21:43)
[2017-03-03] MEDS: DEMEROL IV PRN (03:35)
[2017-03-03] MEDS: 1/2 NS 1,000 ML IV SCH ×2 (05:07→16:09)
[2017-03-03 06:20] LABS: MANUAL DIFF NEEDED? NO
[2017-03-03 06:29] LABS: BASO% 0.3 % (0.0-0.8); EOS% 3.4 % (0.0-10.0); HEMATOCRIT 30.3 % (37.0-47.0); IMM GRAN# 0.02 X1000 (0.0-0.04); IMM GRAN% 0.2 % (0.0-0.5); LYMPH# 1.49 X1000 (1.2-3.4); LYMPH% 16.9 % (20.5-51.1); MCH 29.2 PG (27-31); MCV 88.3 FL (81-99); MONO# 0.81 X1000 (0.11-0.59); MONO% 9.2 % (1.7-9.3); MPV 10.4 FL (7.4-10.4); PLT 221 X1000 (130-400); RBC 3.43 XMIL (4.2-5.4)
[2017-03-03 06:57] LABS: AGAP 12; ALBUMIN 3.1 g/dL (3.5-5.0); ALKALINE PHOSPHATASE 148 U/L (32-104); BUN 4 mg/dL (8-22); CHLORIDE 102 mmol/L (98-107); COSMO 276; GOT 35 U/L (10-30); GPT 69 U/L (10-36); POTASSIUM 3.1 mmol/L (3.5-5.1); SODIUM 140 mmol/L (136-145); TCO2 26 mmol/L (25-35); TOTAL BILIRUBIN 0.39 mg/dL (0.20-1.00); TOTAL PROTEIN 5.5 g/dL (6.3-8.3)
[2017-03-03] MEDS ORDERED: KLOR-CON PO ONE (08:04)
[2017-03-03] MEDS: PERIDEX MT SCH ×2 (09:50→21:42)
[2017-03-03] MEDS: HYZAAR 50/12.5 MG PO SCH (09:50)
--- NOTE | 2017-03-03 13:11 | PROGRESS NOTE ---
DATE: 03/03/2017 SUBJECTIVE: Some increasing epigastric pain after ERCP last night. No nausea or vomiting. OBJECTIVE: Vital Signs: Temperature 97.8 degrees, pulse 71, blood pressure 163/62. Oxygen saturation 96% on room air. General: She is alert. There is no scleral icterus. Abdomen: Soft. Some epigastric tenderness that has increased from yesterday. Incisions are all clean, dry, intact. ELOINA serosanguineous. LABORATORY DATA: White count is stable at 8, hematocrit 30, creatinine 0.9, bilirubin 0.39, AST and ALT are down to 35 and 69. Alkaline phosphatase down to 148. Her lipase is persistently elevated at 212. It was down to 41 previously. ASSESSMENT/PLAN: This is a 71-year-old female who was admitted with gallstone pancreatitis, status post laparoscopic cholecystectomy with cholangiogram that showed a bile duct obstruction, now status post ERCP with sphincterotomy, stone extraction and stent replacement. She appears have a little bit of postprocedural worsening of the pancreatitis. We will monitor today with bowel rest. Plan to advance her diet and maybe home tomorrow. I will remove her drain before she goes. She is on antibiotics for ascending cholangitis prophylaxis and will continue this. Otherwise out of bed and continue to monitor her closely for any deterioration in her clinical condition. cc: Everardo Piper MD
--- NOTE | 2017-03-03 15:00 | PROGRESS NOTE ---
DATE: 03/03/2017 SUBJECTIVE: This patient today is complaining of more periumbilical pain. She denies nausea, vomiting, or diarrhea at this moment. She is tolerating a little bit of fluids. She is status post ERCP. OBJECTIVE: Vital Signs: Temperature 97.8 degrees, pulse 71, respiratory rate 16, blood pressure 163/62, oxygen saturation 96% on room air. HEENT: Head normocephalic. No trauma. PERRLA. Neck: Supple. No JVD. No masses. Central trachea. Cardiovascular: RRR. No murmurs. Chest: Clear to auscultation. No wheezing. No rales. Abdomen: Soft, tender to palpation at the level of the periumbilical area. There is a drain coming out of the abdomen with serosanguineous material. Positive bowel sounds. Extremities: No edema. No clubbing. No cyanosis. Neurological: The patient is alert and oriented x3. No focal neurological deficits. LABORATORY: WBC 8.8, hemoglobin 10, hematocrit 30.3, platelets 221,000. Sodium 140, potassium 3.1, chloride 102, bicarbonate 26, BUN 4, creatinine 0.9, calcium 8, AST 35, ALT 69, alkaline phosphatase 148, lipase 212. ASSESSMENT AND PLAN: 1. Acute cholecystitis status cholecystectomy. Also. This patient had an ERCP done because her cholangiogram showed a bile duct obstruction. During the ERCP, they did a sphincterectomy, stone extraction, and stent placement. She is tolerating a little bit of fluids. We will continue to monitor. 2. Diarrhea. Clostridium difficile has been ruled out. She is not complaining of diarrhea today. 3. Hypertension. Blood pressure is a little bit high. I restarted her home medications today. 4. Transaminitis, likely related to biliary obstruction. She is status post ERCP and stone removal plus stent placement. 5. Physical deconditioning. Physical Therapy is on board. Continue with the same management. 6. Essential tremor. This patient is having a mild tremor. This is chronic. We will continue to monitor. 7. Hypokalemia I will replace the potassium today. This patient is doing better. Hopefully, in 1 or 2 days I am going to be able to discharge this patient home. She does not want to go to a rehabilitation center. She wants to go home with home health and physical therapy. cc: Ameya Sanchez MD [facility]TD[facility]
--- NOTE | 2017-03-03 15:28 | PROGRESS NOTE ---
DATE: 03/03/2017 SUBJECTIVE: Patient is currently resting in bed. She complains of nausea and passing flatus. She has not had a bowel movement today. She was able to eat 50% of her meal this morning. She denies any fevers, rigors, chills. OBJECTIVE: Vital signs: Temperature 97, pulse of 71, respiratory rate 16, blood pressure 162/62, saturating 98% on room air. General Appearance: She is well-nourished, lying in bed, in no acute distress. HEENT: Mild pallor. No icterus. Neck: Supple. Abdomen: Right upper quadrant drain was noted draining serosanguineous fluid. Bowel sounds are present. No guarding. Mild discomfort around the drain site and surgery site. Extremities: No cyanosis or clubbing. Neurologic: She is alert, awake, oriented. LABS: Hemoglobin and hematocrit are 10 and 30.3, white count of 8.8, platelet count of 221,000. MCV of 88.3. Sodium 140, potassium 3.1, chloride 102, bicarbonate 26, anion gap 12, BUN of 4, creatinine 0.9, glucose of 99, calcium is 8, total bilirubin is 0.39, AST 35, ALT is 69, alkaline phosphatase 140, total protein 5.5, albumin of 8.1, lipase of 2.12. IMPRESSION/PLAN: 1. Gallstone pancreatitis status post laparoscopic cholecystectomy with intraoperative cholangiogram showing a torturous common bile duct, ? stricture in bile duct , possible obstruction versus stricture. Now she is status post ERCP with sphincterotomy, stone extraction and stent placement by Dr. Fields on 03/02/2017. She is passing flatus but has not had a bowel movement. We will discuss it with the Nursing Staff and Surgery Team if there is any need for any Dulcolax. 2. GI prophylaxis with protein pump inhibitor. 3. Patient will follow up with us in clinic 4 weeks after discharge to schedule for ERCP stent removal with Dr. Fields. 4. Gallstone pancreatitis. Continue IV fluids for now and avoid greasy fatty foods for 6 weeks. 5. Anemia. She will need outpatient workup. She may need EGD and colonoscopy as an outpatient. The patient was told to call us to schedule for outpatient EGD and colonoscopy if the anemia persists. 6. The above plan of care was discussed with the patient and all questions were answered. cc: MD Ameya Wren MD Kirk L. Jackson, MD R. Tyler Harney, MD MTDD
[2017-03-03] MEDS: SODIUM CHLORIDE 0.9% INJ SCH (16:09)
[2017-03-03] MEDS: PROTONIX IV SCH (16:09)
[2017-03-04] MEDS: ZOSYN 3.375 GM/NS 3.375 GM/50 ML IVPB IV SCH (03:07)
[2017-03-04] MEDS: 1/2 NS 1,000 ML IV SCH ×2 (04:40→16:30)
[2017-03-04 05:47] LABS: MANUAL DIFF NEEDED? NO
[2017-03-04 05:57] LABS: BASO% 0.3 % (0.0-0.8); EOS% 5.4 % (0.0-10.0); HEMATOCRIT 31.8 % (37.0-47.0); HEMOGLOBIN 10.5 g/dL (12.0-16.0); IMM GRAN# 0.02 X1000 (0.0-0.04); IMM GRAN% 0.3 % (0.0-0.5); LYMPH# 1.24 X1000 (1.2-3.4); LYMPH% 16.7 % (20.5-51.1); MCH 28.9 PG (27-31); MCV 87.6 FL (81-99); MONO% 8.1 % (1.7-9.3); MPV 10.3 FL (7.4-10.4); NEUT% 69.2 % (42.2-75.2); PLT 226 X1000 (130-400); RBC 3.63 XMIL (4.2-5.4)
[2017-03-04 06:44] LABS: AGAP 11; BUN 4 mg/dL (8-22); CALCIUM 8.6 mg/dL (8.8-10.2); CHLORIDE 104 mmol/L (98-107); COSMO 280; POTASSIUM 3.6 mmol/L (3.5-5.1); SODIUM 142 mmol/L (136-145); TCO2 27 mmol/L (25-35)
[2017-03-04 07:54] LABS: ALBUMIN 3.1 g/dL (3.5-5.0); ALKALINE PHOSPHATASE 150 U/L (32-104); DIRECT BILIRUBIN < 0.20 mg/dL (0.00-0.20); GOT 23 U/L (10-30); GPT 58 U/L (10-36); LIPASE 92 U/L (13-60); TOTAL BILIRUBIN 0.63 mg/dL (0.20-1.00); TOTAL PROTEIN 5.8 g/dL (6.3-8.3)
[2017-03-04] MEDS ORDERED: LOVENOX SUBQ SCH (08:30)
--- NOTE | 2017-03-04 08:39 | PROGRESS NOTE ---
DATE: 03/04/2017 SUBJECTIVE: She feels okay. Not much of an appetite but her pain is improved, mainly just sore in her incisions. OBJECTIVE: Vital Signs: Temperature is 98.8 degrees, pulse 61, blood pressure is 163/60, oxygen saturation 97% on room air. General: She is alert. HEENT: There is no scleral icterus. There is no jaundice. Cardiovascular: Normal rate, regular rhythm. Abdomen: Soft, nontender, nondistended. Incision is clean, dry, intact. ELOINA serosanguineous. Labs: White count is normal at 7, hematocrit is stable at 31. Bilirubin is normal at 0.63. Transaminases and alkaline phosphatase are downtrending. Lipase is down to 92. ASSESSMENT/PLAN: A 71-year-old female with gallstone pancreatitis and choledocholithiasis noted on cholangiogram. She has had an endoscopic retrograde cholangiopancreatography with stone extraction and stent placement. Overall, doing well. We will give her a soft diet today and would be fine with her going home later today if she tolerates this. She can come back to see me. I will remove her drain on Wednesday in my office. cc: Everardo Piper MD
[2017-03-04] MEDS ORDERED: DULCOLAX PR ONE (09:46)
[2017-03-04] MEDS: HYZAAR 50/12.5 MG PO SCH (09:56)
[2017-03-04] MEDS: PERIDEX MT SCH (09:56)
[2017-03-04] MEDS ORDERED: MIRALAX PO SCH (10:00)
--- NOTE | 2017-03-04 11:12 | PROGRESS NOTE ---
DATE: 03/04/2017 SUBJECTIVE: The patient is resting in bed. She complains of mild constipation. She is passing some flatus. She was able to eat 50% of some meal this morning. Her last bowel movement was 2 days ago. She denies any fevers, rigors, chills, nausea, or vomiting. OBJECTIVE: Vital signs: Temperature 98.9 degrees, pulse rate of 78, respiratory rate blood pressure 136/60, saturating 97% on room air. General appearance: Thinly built, lying in bed in no acute distress. HEENT: Mild pallor. No icterus. Neck: Supple. Abdomen: Right upper quadrant drain noted. Mildly sore around the right upper quadrant area. Bowel sounds are present, but hypoactive. No rebound. No guarding. Extremities: No cyanosis, clubbing. Neurologic: She is alert, awake, oriented. LABORATORY DATA: Her hemoglobin and hematocrit are 10.5 and 31.8, white count 7.4, platelet count of 226,000. Sodium 142, potassium 3.6, chloride 104, bicarb 27, anion gap 11, BUN of 4, creatinine of 1, glucose of 98, calcium 8.6. Total bilirubin is 0.63, AST 23, ALT 58, alkaline phosphatase 150, total protein 5.8, albumin of 3.1. Lipase of 92. IMPRESSION AND PLAN: 1. Constipation. She will be started on 1 dose of MiraLAX and Dulcolax today. At home, if she stays constipated, she will continue on MiraLAX once daily. 2. Gallstone pancreatitis, status post laparoscopic cholecystectomy with intraoperative cholangiogram showing a torturous common bile duct, stricture in the common duct. She is status post endoscopic retrograde cholangiopancreatography with sphincterotomy and stone extraction and stent placement by Dr. Fields on 03/02/2017. 3. The patient will follow with Dr. Fields in 4 weeks, and scheduled for endoscopic retrograde cholangiopancreatography with stent removal in 4 to 6 weeks. The patient was informed about that. 4. Gastrointestinal prophylaxis with proton pump inhibitors. 5. Anemia. Continue to watch. May benefit from multivitamin containing iron once daily at home. 6. The patient may need esophagogastroduodenoscopy and colonoscopy as outpatient for workup if anemia persists. Above plan was discussed with the patient and all questions were answered. cc: MD Everardo Wren MD Omar J. Sosa-Chirinos, MD Dr. Jackson MTDD
--- NOTE | 2017-03-04 15:37 | PROGRESS NOTE ---
DATE: 03/04/2017 SUBJECTIVE: This patient states that she is feeling better. We advanced the diet today. She is complaining of periumbilical pain, but compared with yesterday it is better. I will keep this patient 1 more night and tomorrow morning, if everything is okay, I will send her home. OBJECTIVE: Vital Signs: Temperature 98.9 degrees, pulse 70, respiratory rate 20, blood pressure 136/60, oxygen saturation 96% on room air. HEENT: Head normocephalic. No trauma. PERRLA. Neck: Supple. No JVD. No masses. Central trachea. Chest: Clear to auscultation. No wheezing. No rales. Abdomen: Soft. Mild tenderness to palpation at the level of the periumbilical area. Positive bowel sounds. Extremities: No edema. No clubbing. No cyanosis. Neurological: The patient has tremors, generalized. Patient is alert and oriented x3. No focal deficits. LABORATORY: WBC 7.4, hemoglobin 10.5, hematocrit 31.8, platelets 226,000. Sodium 142, potassium 3.6, chloride 104, bicarbonate 27, BUN 4, creatinine 0.8, glucose 98, calcium 8.6, albumin 3.1, lipase 92. ASSESSMENT AND PLAN: 1. Acute cholecystitis, status post cholecystectomy and status post ERCP done. At the beginning, cholangiogram showed a bile duct obstruction during the ERCP. They did a sphincterectomy, stone extraction, and stent placement. She is tolerating more food and hopefully tomorrow, if she is doing better, I will send her home. 2. Diarrhea. Clostridium difficile has been ruled out. The diarrhea is getting better. 3. Hypertension. Continue with the same management. 4. Transaminitis, likely related to biliary obstruction. She is status post ERCP and stone removal plus stent placement. 5. Physical deconditioning. Physical Therapy is on board. 6. Essential tremor. This is chronic. Stable. 7. Hypokalemia, resolved. cc: Ameya Sanchez MD
[2017-03-04 16:24] VITALS: BP 134/57
[2017-03-04] MEDS: PROTONIX IV SCH (16:30)
[2017-03-04] MEDS: SODIUM CHLORIDE 0.9% INJ SCH (16:30)
--- NOTE | 2017-03-05 11:34 | DISCHARGE SUMMARY ---
ADMISSION DATE: 02/25/2017 DISCHARGE DATE: 03/04/2017 CONSULTATIONS: 1. Dr. Carlos Piper with general surgery. 2. Dr. Avila with gastroenterology. PERTINENT PROCEDURES: 1. Abdomen and pelvis CT showed acute cholecystitis. 2. Laparoscopic cholecystectomy with intraoperative cholangiogram performed on Dr. Piper on 03/01/2017. 3. Cholangiogram showed no definite retained stone but a couple of tiny retained stones in the distal common bile duct that could not be entirely excluded. 4. ERCP x-ray showed biliary stent placed with possible stone removal. DISCHARGE DIAGNOSES: 1. Acute cholecystitis status post cholecystectomy and status post ERCP with a sphincterotomy stone extraction and stent placement by Dr. Fields on 03/02/2017. 2. Diarrhea. Clostridium difficile was ruled out, improving. 3. Hypertension, stable. 4. Transaminitis secondary to biliary obstruction. Status post ERCP and stone removal plus stent placement. 5. Physical deconditioning. The patient did work with physical therapy. This has improved. Patient to return home. 6. Essential tremor, chronic and stable. 7. Hypokalemia, resolved. 8. Gallstone pancreatitis, status post laparoscopic cholecystectomy with an intraoperative cholangiogram showing a torturous common bile duct stricture in the common duct. Status post ERCP sphincterotomy stone extraction and stent placement by Dr. Fields. She will continue to be followed by GI in 4 weeks for a scheduled ERCP with stent removal. 9. Anemia, stable. Patient may need EGD and colonoscopy as outpatient. HOSPITAL COURSE: Ms. Quinones is a 71-year-old female with a history of hypertension, osteoarthritis and benign essential tremor who reported to the ED with a week history of epigastric pain and some intermittent diarrhea, and then protracted nausea. She has no history of gallstone or biliary colic. The pain was described as sharp and focused in her epigastrium associated with nausea, vomiting, and radiates to her lower quadrants. The patient had a CT of the abdomen and pelvis while in the ED. This showed acute cholecystitis. Dr. Piper, with General Surgery was consulted. The patient was started on IV fluids, IV pain medicine, as well as antiemetics, as well as antibiotics. She also underwent an abdominal ultrasound that did show acute cholecystitis. Dr. Carlos Piper felt that the patient was stable and did not appear to be septic. Again for pancreatitis he recommended her to be NPO with bowel rest. Followup her labs and exam and they planned for a cholecystectomy with cholangiogram when her pancreatitis resolved and continued to monitor her LFTs. Patient did have surgery on 03/01/2017 laparoscopically. Her intraoperative cholangiogram showed a torturous common bile duct stricture in the common duct. She was status post ERCP with sphincterotomy and stone extraction and stent placement by Dr. Fields on 03/02/2017. She will continue to follow up with Dr. Fields as an outpatient for another ERCP with stent removal, as well as consider an EGD and colonoscopy for anemia. Ms. Quinones diet was slowly advanced. She has tolerated her diet. The patient did have some physical deconditioning while she was in the hospital. Physical therapy was on board. [employer] was also contacted for rehab placement. However, the patient has refused rehab. She is going home. She was discharged home on 03/04/2017 around 17:30. PHYSICAL EXAMINATION: Vital signs: At time of her discharge, temperature is 97.3 degrees, heart rate was 60, respirations of 20, blood pressure is 134/57, O2 is 97% on room air. DISCHARGE DIET: GI soft. DISCHARGE MEDICATIONS: 1. Aspirin 81 mg p.o. daily. 2. Ibuprofen 400 mg p.o. q.8 hours. 3. Losartan/hydrochlorothiazide 125 mg tablet 0.5 each p.o. daily. 4. Protonix 40 mg p.o. daily. FOLLOWUP: Patient is being discharged home. She can follow up with her primary care physician, Dr. Serjio Perdomo, as well as Dr. Carlos Piper on 03/08/2017, and Dr. Fields as outpatient in 3 weeks. The patient can return to the ED for any worsening of symptoms. Dictated by SHARRON Santana for Ameya Sanchez MD cc: MD Serjio Hurst MD
--- NOTE | 2017-03-12 16:42 | OPERATIVE NOTE ---
PROCEDURE DATE: 03/02/2017 PROCEDURES: 1. Endoscopic retrograde cholangiopancreatography. 2. Endoscopic sphincterotomy. 3. Stone removal. 4. Stent placement. PREOPERATIVE DIAGNOSIS: Choledocholithiasis. POSTOPERATIVE DIAGNOSES: 1. Tortuous distal common bile duct. 2. Common bile duct stones. After informed consent and adequate intravenous sedation by Anesthesia, the scope was introduced to the esophagus, stomach, and duodenum. The ampulla appears normal. Cholangiogram revealed a very tortuous bile duct, it was a difficult to use a 0.21 guidewire and finally I went and did cholangiogram. A wide sphincterotomy was then done. There are 2 stones that came out of the bile duct spontaneously and then basket sweep was done and a 5 cm 10-Cub[place] stent was placed. The scope was withdrawn. The patient tolerated the procedure and was transported back to recovery area in satisfactory condition. I will see her after a few weeks to remove the stent. cc: Andrea Fields MD
== END 2017-03-04 18:37 | disposition home or self-care (01) ==
LOC: P.ED 10:17 → 4N 13:50 → SUATTDRO 13:50 → 4N 16:09
PROVIDERS: ATTEND Internal Medicine
PROC: EN.ERCP (2017-03-02 13:30)